=== PATIENT | male | born 1970 | race Caucasian/White ===

== ENCOUNTER 2020-05-13 07:52 | Day surgery (SDC) | payer MEDICARE ==
[2020-05-13] MEDS ORDERED: LIDOCAINE HCL 2% 100 MG/5 ML IJ ONE (07:53)
[2020-05-13] MEDS ORDERED: Depo-Medrol 40 MG/ML IM ONE (07:53)
[2020-05-13] MEDS ORDERED: DIPRIVAN 200 MG/20 ML IV ONE (09:47)
[2020-05-13] MEDS ORDERED: Ketamine HCl 50 MG/ML IV ONE (09:47)
--- NOTE | 2020-05-13 10:38 | XRAY ---
Indication: Bilateral L4-S1 MBB. Intraoperative fluoroscopy was provided for 9 seconds. Single digital spot image submitted for interpretation demonstrate posterior needle tips projecting over the expected course of the left and right L4-S1 nerve roots. Correlate with intraoperative findings/report. Incidental incompletely visualized spinal stimulator leads.
--- NOTE | 2020-05-13 10:40 | XRAY ---
9 seconds fluoroscopy time in surgery for bilateral L4-S1 MBB.
[2020-05-13] MEDS ORDERED: Lactated Ringers 1,000 ML IV ONE (15:29)
== END 2020-05-13 10:10 | disposition home or self-care (01) ==
LOC: SDC-PAIN 07:52
PROVIDERS: ATTEND Psychiatry & Neurology Pain Medicine
DX: M47.816 Spondylosis without myelopathy or radiculopathy, lumbar region (principal); E11.9 Type 2 diabetes mellitus without complications; I10 Essential (primary) hypertension; F41.8 Other specified anxiety disorders; I25.10 Atherosclerotic heart disease of native coronary artery without angina pectoris; Z79.899 Other long term (current) drug therapy
CPT/HCPCS: 64493; 64494; 72020; 77002; 82962; J1030; J2704

== ENCOUNTER 2020-06-03 08:03 | Day surgery (SDC) | payer MEDICARE ==
[2020-06-03] MEDS ORDERED: BUPIVACAINE 0.5% VIAL IJ ONE (08:04)
[2020-06-03] MEDS ORDERED: Depo-Medrol 40 MG/ML IM ONE (08:04)
[2020-06-03] MEDS ORDERED: Xylocaine 1% Vial 30 ML PF IJ ONE (08:04)
[2020-06-03] MEDS ORDERED: Lactated Ringers 1,000 ML IV ONE (13:52)
--- NOTE | 2020-06-04 15:05 | XRAY ---
27 seconds fluoroscopy time in surgery for bilateral L4-S1 MBB
--- NOTE | 2020-06-06 22:16 | XRAY ---
Indication: Bilateral L4-S1 MBB. Intraoperative fluoroscopy was provided for 27 seconds. A single digital spot image submitted for interpretation demonstrates posterior spinal needle tips projected over the expected course of the left and right L4-S1 nerve roots. Correlate with intraoperative findings/report.
== END 2020-06-03 10:25 | disposition home or self-care (01) ==
LOC: SDC-PAIN 08:03 → EDSTATUS 20:42
PROVIDERS: ATTEND Psychiatry & Neurology Pain Medicine
DX: M47.816 Spondylosis without myelopathy or radiculopathy, lumbar region (principal); M47.817 Spondylosis without myelopathy or radiculopathy, lumbosacral region; I10 Essential (primary) hypertension; E11.9 Type 2 diabetes mellitus without complications; F41.8 Other specified anxiety disorders; I25.10 Atherosclerotic heart disease of native coronary artery without angina pectoris; Z79.899 Other long term (current) drug therapy
CPT/HCPCS: 64493; 64494; 72020; 77002; 82962; J1030; J2001

== ENCOUNTER 2020-11-04 09:48 | Day surgery (SDC) | payer MEDICARE ==
[2020-11-04] MEDS ORDERED: BUPIVACAINE 0.5% VIAL IJ ONE (09:49)
[2020-11-04] MEDS ORDERED: DIPRIVAN 200 MG/20 ML IV ONE (11:36)
[2020-11-04] MEDS ORDERED: Ketamine HCl 50 MG/ML ONE (11:36)
--- NOTE | 2020-11-04 12:45 | XRAY ---
Indication: Bilateral L4-S1 MBB Intraoperative fluoroscopy provided for 14 seconds. Single digital spot image submitted for interpretation demonstrates posterior needle tips projecting over the expected course of the left and right L4-S1 nerve roots. Correlate with intraoperative findings/report.
--- NOTE | 2020-11-04 12:49 | XRAY ---
14 seconds fluoroscopy tie in surgery for bilateral L4-S1 MBB.
[2020-11-04] MEDS ORDERED: Lactated Ringers 1,000 ML IV ONE (16:34)
== END 2020-11-04 11:58 | disposition home or self-care (01) ==
LOC: SDC-PAIN 09:48
PROVIDERS: ATTEND Psychiatry & Neurology Pain Medicine
DX: M47.816 Spondylosis without myelopathy or radiculopathy, lumbar region (principal); I10 Essential (primary) hypertension; E11.9 Type 2 diabetes mellitus without complications; I25.10 Atherosclerotic heart disease of native coronary artery without angina pectoris; F41.8 Other specified anxiety disorders; Z79.899 Other long term (current) drug therapy
CPT/HCPCS: 64493; 64494; 72020; 77002; 82947; J2704

== ENCOUNTER → 2020-11-25 | Day surgery (SDC) | payer MEDICARE | LOC: SDC-PAIN 14:53 | PROVIDERS: ATTEND Psychiatry & Neurology Pain Medicine | DX: Z53.09 Procedure and treatment not carried out because of other contraindication (principal); I10 Essential (primary) hypertension; E11.9 Type 2 diabetes mellitus without complications | CPT/HCPCS: 82947; 99211 ==